=== PATIENT | female | born 1950 | race Caucasian/White ===

== ENCOUNTER 2021-04-18 11:00 | Emergency (ER) | payer SELFPAY ==
[~2021-04-18] VITALS: Ht 167.6 cm; Wt 80.0 kg
[2021-04-18 11:17] VITALS: BP 136/66
[2021-04-18] MEDS ORDERED: PROT20 MT (11:31)
== END 2021-04-18 11:41 | disposition home or self-care (01) ==
LOC: ER 11:17
DX: E11.65 Type 2 diabetes mellitus with hyperglycemia (principal); Z76.0 Encounter for issue of repeat prescription; K21.9 Gastro-esophageal reflux disease without esophagitis; F17.210 Nicotine dependence, cigarettes, uncomplicated
CPT/HCPCS: 93005; 99283; Z7610